=== PATIENT | male | born 1965 | race Caucasian/White ===

== ENCOUNTER 2022-06-23 06:55 | Inpatient (IN) ==
[~2022-06-23 06:55] MED LIST: Buffered Lidocaine 1% SYRIN 1 ml INTRADERM ONE; Lactated Ringers 1000 ml BAG 1,000 ML IV SCH; ROPIVACAINE 5 MG/ML 30 ML BTL (0.5%) ONE
[2022-06-23] MEDS ORDERED: Lidocaine 2% PF 5 ML VIAL ONE (07:03)
[2022-06-23] MEDS ORDERED: Propofol 10 MG/ML 20 ML BTL ONE ×2 (07:03→08:42)
[2022-06-23] MEDS ORDERED: Phenylephrine IV 10 MG/ML 1 ml VIAL ONE (07:07)
[2022-06-23] MEDS ORDERED: Ketamine HCL 50 mg/ml 10 ml VIAL (500 MG) ONE (07:07)
[2022-06-23] MEDS ORDERED: Buffered Lidocaine 1% SYRIN 1 ml ONE (07:35)
[2022-06-23] MEDS ORDERED: ceFAZolin 2 GM PREMIX 2 GM/50 ML BAG ONE (07:35)
[2022-06-23] MEDS ORDERED: Midazolam 2 mg/2 ml VIAL 1 mg/ml 2 ml VIAL (2 mg) ONE (08:21)
[2022-06-23] MEDS ORDERED: fentaNYL 100 mcg/2 ml 50 MCG/ML VIAL ONE ×3 (08:21→11:45)
[2022-06-23] MEDS ORDERED: ROPIVACAINE 5 MG/ML 30 ML BTL (0.5%) ONE (08:21)
[2022-06-23] MEDS ORDERED: fentaNYL 250 mcg/5 ml 50 MCG/ML 5 ml VIAL (250 MCG) ONE (08:42)
[2022-06-23] MEDS ORDERED: Ondansetron 4 mg VIAL 2 MG/ML 2 ml VIAL IV PRN ×2 (08:52→11:37)
[2022-06-23] MEDS ORDERED: HYDROmorphone 1 MG/1 ML SYRINGE IV PRN (08:52)
[2022-06-23] MEDS ORDERED: Naloxone 0.4 mg VIAL 0.4 mg/ml 1 ml VIAL IV PRN (08:52)
[2022-06-23] MEDS ORDERED: fentaNYL 100 mcg/2 ml 50 MCG/ML VIAL IV PRN (08:52)
[2022-06-23] MEDS ORDERED: Levalbuterol 0.63MG/3ML NEB UNIT OF USE INH PRN (08:52)
[2022-06-23] MEDS ORDERED: Tranexamic Acid 1,000 MG in NS 0.9% 50 ML IV ONE (09:00)
[2022-06-23] MEDS ORDERED: Phenylephrine 40 mcg/mL 10mL (400mcg) SYRINGE ONE (09:16)
[2022-06-23] MEDS ORDERED: Glycopyrrolate IV 0.2 MG/ML 1 ML VIAL ONE (09:17)
[2022-06-23] MEDS ORDERED: Ondansetron 4 mg VIAL 2 MG/ML 2 ml VIAL ONE (09:31)
[2022-06-23] MEDS ORDERED: Dexamethasone IV 4 MG/ML VIAL 1 ml VIAL ONE (09:31)
[2022-06-23] MEDS ORDERED: Acetaminophen IV 1 GM/100ML 1,000 MG/100 ML BAG IV ONE (09:33)
[2022-06-23] MEDS ORDERED: HYDROmorphone 0.5 MG/0.5 ML SYRINGE ONE (09:55)
[2022-06-23] MEDS ORDERED: Esmolol 10 MG/ML 10 ML (100 mg) IV ONE (10:06)
[2022-06-23] MEDS ORDERED: Labetalol IV 5 MG/ML 20 ml VIAL ONE (10:08)
[2022-06-23] MEDS ORDERED: Magnesium Hydroxide LIQ 30 ML UDC PO PRN (11:37)
[2022-06-23] MEDS ORDERED: Lactulose 30 ml UDC PO PRN (11:37)
[2022-06-23] MEDS ORDERED: Ondansetron ODT 4 mg TAB 4 MG TAB PO PRN (11:37)
[2022-06-23] MEDS ORDERED: Morphine 2 MG/ML SYRINGE IV PRN (11:37)
[2022-06-23] MEDS: Lactated Ringers 1000 ml BAG 1,000 ML IV SCH (14:19)
[2022-06-23] MEDS: ceFAZolin 1 GM ADVAN 1 GM in NS 0.9% 50 ML 50 ML IVPB SCH (16:55)
[2022-06-23] MEDS: Magnesium Hydroxide LIQ 30 ML UDC PO SCH (21:41)
[2022-06-24] MEDS: Lactated Ringers 1000 ml BAG 1,000 ML IV SCH (00:54)
[2022-06-24] MEDS: ceFAZolin 1 GM ADVAN 1 GM in NS 0.9% 50 ML 50 ML IVPB SCH ×2 (00:59→08:50)
[2022-06-24 06:09] LABS: Hematocrit 42 % (42-52); Hemoglobin 13.8 g/dL (14.0-18.0); Mean Platelet Volume 7.1 fL (7.4-10.4); Platelet Count 340 10^3/uL (150-450)
[2022-06-24 06:47] LABS: Calcium 9.1 mg/dL (8.6-10.3); Creatinine, Serum 0.72 mg/dL (0.67-1.17); Potassium 4.1 mmol/L (3.5-5.0); eGFR CKD-EPI 107.2 (>60)
[2022-06-24] MEDS: Magnesium Hydroxide LIQ 30 ML UDC PO SCH (08:51)
[2022-06-24] MEDS ORDERED: Vitamin THERAPEUTIC TAB PO SCH (09:00)
[2022-06-24 11:14] VITALS: BP 124/88
== END 2022-06-24 13:54 | disposition home or self-care (01) | DRG 302 ==
LOC: SSU 06:55 → OR 06:55 → OBSVTOIN 13:03
PROVIDERS: ADMIT Orthopaedic Surgery Adult Reconstructive Orthopaedic Surgery; ATTEND Orthopaedic Surgery Adult Reconstructive Orthopaedic Surgery